=== PATIENT | female | born 1990 | race Caucasian/White ===

== ENCOUNTER 2021-01-06 04:40 | Day surgery (SDC) | payer OTHER ==
[2021-01-01 12:05] VITALS: BMI 23.0
[2021-01-06] MEDS ORDERED: fentaNYL CITRATE 250 MCG/5 ML VIAL ONE (07:16)
[2021-01-06] MEDS ORDERED: ROCURONIUM BROMIDE 50 MG/5 ML SYRINGE ONE (07:16)
[2021-01-06] MEDS ORDERED: LIDOCAINE HCL/PF 2% SDV 5ML VIAL ONE (07:16)
[2021-01-06] MEDS ORDERED: DEXAMETHASONE SOD PHOSPHATE 4 MG/1 ML VIAL ONE (07:16)
[2021-01-06] MEDS ORDERED: PROPOFOL 20 ML ONE (07:17)
[2021-01-06] MEDS ORDERED: MIDAZOLAM HCL 2 MG/2 ML SINGLE DOSE VIAL ONE (07:17)
[2021-01-06] MEDS ORDERED: ceFAZolin SODIUM 1 GM VIAL ONE (07:46)
[2021-01-06] MEDS ORDERED: ceFAZolin SODIUM 1 GM VIAL IVPB ONE (07:52)
[2021-01-06] MEDS ORDERED: NEOSTIGMINE METHYLSULFATE 0.5 MG/ML - 10 ML MDV ONE (08:39)
[2021-01-06] MEDS ORDERED: BUPIVACAINE HCL/PF 0.5% (5 MG/ML) 30 ML VIAL IJ ONE (08:46)
[2021-01-06] MEDS ORDERED: ACETAMINOPHEN 500 MG TABLET (FP) PO PRN (09:20)
[2021-01-06] MEDS ORDERED: oxyCODONE HCL 5 MG TABLET PO PRN (09:43)
[2021-01-06] MEDS ORDERED: LACTATED RINGERS SOLUTION 1,000 ML IV SCH (09:45)
[2021-01-06] MEDS ORDERED: ONDANSETRON 4 MG/2 ML VIAL ONE (12:41)
[2021-01-06] MEDS ORDERED: oxyCODONE HCL 5 MG TABLET ONE (12:41)
[2021-01-06] MEDS ORDERED: ONDANSETRON 4 MG/2 ML VIAL IVPB ONE ×2 (12:45)
[2021-01-06] MEDS ORDERED: oxyCODONE HCL 5 MG TABLET PO ONE ×2 (12:45)
[2021-01-06 12:52] VITALS: TEMP 96.4
[2021-01-06 14:35] VITALS: BP 121/85; PULSE 78
== END 2021-01-06 14:44 | disposition home or self-care (01) ==
LOC: JASU-SURG 04:40
PROVIDERS: ATTEND Obstetrics & Gynecology
PROC: 0UB04ZZ Excision of Right Ovary, Percutaneous Endoscopic Approach (ICD-10-PCS; principal; 2021-01-06 07:30)
DX: N83.201 Unspecified ovarian cyst, right side (principal)
CPT/HCPCS: 36415; 84703; 86850; 86900; 86901; 94760